=== PATIENT | male | born 1980 | race Caucasian/White ===

== ENCOUNTER 2024-06-24 08:33 | Emergency (ER) | payer BC, SELFPAY ==
[2024-06-24] VITALS (14 sets, daily range): BP systolic 141–183; BP diastolic 78–105; PULSE 59–93; RESP 18; TEMP 36.8; O2SAT 94–99; BMI 42.0
--- NOTE | 2024-06-24 09:07 | ED_ITS ---
HPI - Abdominal Pain General Chief Complaint: Abdominal Pain Stated Complaint: internal pain l quadrant abd Time Seen by Provider: 06/24/24 09:02 Source: patient Mode of arrival: Ambulatory History of Present Illness HPI narrative: 44-year-old male with history of diverticulitis, for which he has had prior admission with bloody stools, complains of 4 days duration left flank and left upper quadrant and left lower quadrant discomfort, persisting, worse lying on his left side, worse with movement, improved with holding still and upright positioning, not typical of his previous diverticulitis flare symptoms. No injury or trauma new activities. Last bowel movement this morning unremarkable, not hard, no black or red coloration, no change in caliber, not loose, and did not increase or decrease his ongoing abdominal discomfort. He denies history of previous kidney stones, aortic problems, urinary tract infection. Denies pain on urination, frequency of urination. No problems emptying bowel or bladder. No recent exposure to persons with similar symptoms. Related Data Previous Rx's Medication Instructions Recorded amoxicillin 875 mg-potassium 1 tab PO BID #20 tabs 06/24/24 clavulanate 125 mg tablet Allergies Allergy/AdvReac Type Severity Reaction Status Date / Time No Known Drug Allergies Allergy Verified 06/24/24 08:46 Review of Systems Review of Systems Narrative: see HPI Patient History Social History Smoking Status: Never smoker Smoking Status: Never smoker alcohol intake frequency: a few times a week Substance Use Type: does not use Exam Narrative Exam Narrative: GENERAL: Well-developed patient, in mild distress. HEAD: Atraumatic. Normocephalic. EYES: Pupils equal round and reactive. Extraocular motions intact. No scleral icterus. No injection or drainage. ENT: Nose without bleeding, purulent drainage. Throat without erythema, tonsillar hypertrophy or exudate. Airway patent. NECK: Trachea midline. Non tender CARDIOVASCULAR: Regular rate and rhythm without murmurs, gallops, or rubs. RESPIRATORY: Clear to auscultation. Breath sounds equal bilaterally. No wheezes, rales, or rhonchi. GASTROINTESTINAL: Abdomen soft, non-tender, nondistended. EXTREMITIES: No edema or joint tenderness. BACK: Nontender without deformity or crepitance. No flank tenderness. NEURO: AOx3. SKIN: No rash or erythema of visible areas Initial Vital Signs Initial Vital Signs: Vital Signs Pulse Rate 84 06/24/24 08:40 Pulse Oximetry 96 06/24/24 08:40 Course Orders Ordered: Discontinued Medications Sodium Chloride (Normal Saline 0.9%) 1,000 mls @ 500 mls/hr IV BOLUS ONE Stop: 06/24/24 11:44 Last Infusion: 06/24/24 12:11 Dose: Infused Documented By: Admin: 06/24/24 10:01 Dose: 500 mls/hr Documented By: NESS Ampicillin Sodium/Sulbactam (Sodium 3 gm/ Sodium Chloride) 100 mls @ 200 mls/hr IV NOW ONE Stop: 06/24/24 12:12 Last Infusion: 06/24/24 13:03 Dose: Infused Documented By: Admin: 06/24/24 12:29 Dose: 200 mls/hr Documented By: NESS Ondansetron HCl (Ondansetron 4 Mg/2 Ml Inj) 4 mg IV NOW PRN PRN Reason: Nausea And Vomiting Ondansetron HCl (Ondansetron 4 Mg Odt) 4 mg PO NOW PRN PRN Reason: Nausea And Vomiting Vital Signs Vital signs: Vital Signs - 8 hr 06/24/24 12:30 06/24/24 12:30 Pulse Rate 71 Blood Pressure 159/96 H Pulse Oximetry 98 MDM - Abdominal Pain Lab Data Attestation: I reviewed the patient's lab results. 06/24/24 08:55 06/24/24 08:55 Labs: Lab Results 06/24/24 Range/Units 08:55 WBC 6.8 (4.5-11.0) X10^3/uL RBC 5.08 (4.5-5.9) X10^6/uL Hgb 14.8 (13.5-17.5) g/dL Hct 43.3 (41-53) % MCV 85.3 (80-100) fL MCH 29.2 (26-34) PG MCHC 34.2 (30-36) % RDW 13.8 (11.6-14.8) % Plt Count 174 (150-400) X10^3/uL Neut % (Auto) 60.3 (50-75) % Lymph % (Auto) 25.7 (25-40) % Barber % (Auto) 6.3 (3-14) % Eos % (Auto) 7.2 H (2-4) % Baso % (Auto) 0.5 (0-2) % Neut # (Auto) 4100 (7909-4566) /uL Lymph # (Auto) 1800 (1978-7354) /uL Barber # (Auto) 400 (0-900) /uL Eos # (Auto) 500 H (0-450) /uL Baso # (Auto) 0 (0-100) /uL Sodium 137 (137-145) mmol/L Potassium 4.2 (3.4-5.1) mmol/L Chloride 105 (98-107) mmol/L Carbon Dioxide 24 (22-32) mmol/L BUN 10 (9-20) mg/dL Creatinine 0.90 (0.66-1.25) mg/dL Estimated GFR > 60 (>60) mL/min BUN/Creatinine Ratio 11.1 (6-22) Glucose 96 (70-100) mg/dL Calcium 9.1 (8.4-10.2) mg/dL Total Bilirubin 0.8 (0.2-1.3) mg/dL AST 39 (17-59) IU/L ALT 70 H (<50) IU/L Alkaline Phosphatase 91 (38-126) U/L Total Protein 7.5 (6.3-8.2) g/dL Albumin 4.4 (3.5-5.0) g/dL Globulin 3.1 (1.7-4.1) g/dL Albumin/Globulin Ratio 1.4 (1.0-2.8) Lipase 98 (23-300) U/L Point of care testing: Urine Dip Bedside Urine Glucose Negative Bedside Urine Bilirubin - Negative Bedside Urine Ketone - Negative Urine Specific Browning 1.015 Bedside Urine Occult Blood - Negative Bedside Urine pH 6.0 Bedside Urine Protein - Negative Bedside Urine Urobilinogen - Negative Bedside Urine Nitrite - Negative Bedside Urine Leukocytes - Negative Esterase MDM Narrative Medical decision making narrative: 44-year-old male with atraumatic left flank left-sided abdominal pain upper and lower, for the last 4 days, history of diverticulitis but he feels this is different, no known history of kidney stones or aortic problems. No tenderness on exam. Afebrile, sirs screen negative. DDx consider left ureteral stone, UTI/pyelo, diverticulitis, colitis, perforated viscus, bowel obstruction, musculoskeletal, renovascular infarct, splenic injury, other. Pain medication offered, he declined for now. Labs pending, anticipate CT abdomen and pelvis imaging. CT abdomen and pelvis shows diverticulosis with scattered areas of possible diverticulitis. No mention of any abscess or perforation changes. IV Unasyn, we will discharge on oral Augmentin course. Improved, discharged home, follow up as outpatient, return precautions discussed Critical Care Time Critical Care Time Critical Care Time: Yes Total Critical Care Time: 31 Attestation: The high probability of a clinically significant, sudden or life threatening deterioration of the [GI, , abdomiopelvic] system(s) required my full and direct attention, intervention and personal management. The aggregate critical care time was [31] minutes. This time is in addition to time spent performing reported procedures but includes the following: [x] Data Review and interpretation [x] Patient assessment and monitoring of vital signs [x] Documentation [x] Medication orders and management Discharge Plan Departure Patient Disposition: Home Clinical Impression: Diverticulitis Instructions: DI for Diverticulitis Activity Restrictions/Additional Instructions: Left-sided abdominal pain and flank pain, history of diverticulitis, no tenderness on exam. No known history of kidney stones. No fever on triage. CT abdomen and pelvis was performed to help clarify diagnosis, there is mostly diverticulosis noninfected pouches but there are some scattered areas of diverticulitis infected pouches, no obstruction or abscess or perforation changes. You are not having lower GI bleeding symptoms at this time or recent. IV antibiotic Unasyn given, trial of oral antibiotic Augmentin for 10 day course. Recheck symptoms with your regular doctor on Thursday. You declined pain medications while in the department here, consider using Tylenol and or Motrin for pain control as an outpatient. Return to this/nearest emergency department for any change worsening symptoms or any concerns prior Prescriptions: New amoxicillin-pot clavulanate 875-125 mg tablet 1 tab PO BID Qty: 20 0RF Stand Alone Forms: Patient Portal/API
[2024-06-24 09:23] LABS: Add Manual Diff / Slide Review NO; Alanine Aminotransferase 70 IU/L (<50); Albumin 4.4 g/dL (3.5-5.0); Albumin Globulin Ratio 1.4 (1.0-2.8); Alkaline Phosphatase 91 U/L (38-126); Aspartate Aminotransferase 39 IU/L (17-59); BUN Creatinine Ratio 11.1 (6-22); Basophils Absolute Auto 0 /uL (0-100); Basophils Percent Auto 0.5 % (0-2); Bilirubin Total 0.8 mg/dL (0.2-1.3); Blood Urea Nitrogen 10 mg/dL (9-20); Calcium 9.1 mg/dL (8.4-10.2); Carbon Dioxide 24 mmol/L (22-32); Chloride 105 mmol/L (98-107); Eosinophils Absolute Auto 500 /uL (0-450); Eosinophils Percent Auto 7.2 % (2-4); Estimated Glomerular Filt Rate > 60 mL/min (>60); Globulin 3.1 g/dL (1.7-4.1); Glucose 96 mg/dL (70-100); HEMOLYSIS < 15 (0-50); Hematocrit 43.3 % (41-53); Hemoglobin 14.8 g/dL (13.5-17.5); Lipase 98 U/L (23-300); Lymphocytes Absolute Auto 1800 /uL (1100-4500); Lymphocytes Percent Auto 25.7 % (25-40); Mean Corpuscular HGB Conc 34.2 % (30-36); Mean Corpuscular Hemoglobin 29.2 PG (26-34); Mean Corpuscular Volume 85.3 fL (80-100); Monocytes Absolute Auto 400 /uL (0-900); Monocytes Percent Auto 6.3 % (3-14); Neutrophils Absolute Auto 4100 /uL (1500-7000); Neutrophils Percent Auto 60.3 % (50-75); Platelet Count 174 X10^3/uL (150-400); Potassium 4.2 mmol/L (3.4-5.1); Red Blood Cell Count 5.08 X10^6/uL (4.5-5.9); Red Cell Distribution Width 13.8 % (11.6-14.8); Sodium 137 mmol/L (137-145); Total Protein 7.5 g/dL (6.3-8.2); White Blood Cell Count 6.8 X10^3/uL (4.5-11.0)
--- NOTE | 2024-06-24 09:45 | DI.CT.S_ITS ---
PROCEDURE: CT ABDOMEN PELVIS W CON INDICATIONS: L flank LMQ LLQ pain, hx diverticulitis, no tenderness TECHNIQUE: After the administration of intravenous contrast, axial sections acquired from the lung bases to the pubic symphysis. Coronal and sagittal reformats were performed. For radiation dose reduction, the following was used: automated exposure control, adjustment of mA and/or kV according to patient size. COMPARISON: None. FINDINGS: Image quality: Diagnostic. Lower Chest: No significant findings. ABDOMEN: Liver: Moderate diffuse hepatic steatosis. No focal liver mass. Gallbladder: Multiple tiny dependent gallstones in the gallbladder. No gallbladder wall thickening. Biliary ducts: No biliary dilation. Pancreas: No ductal dilation. Spleen: Size is within normal limits. Adrenal Glands: No adrenal nodules. Kidneys and Ureters: No hydronephrosis. No solid mass. No complex renal cystic lesion which requires follow up. Stomach and Bowel: Normal colonic caliber, without significant wall thickening. Scattered left colonic diverticulosis. Question very mild changes of acute diverticulitis. Peritoneum: No abnormal intraperitoneal fluid. No free air. Ventral Wall: No significant ventral hernia. Abdominal Nodes: No retroperitoneal or mesenteric adenopathy by size criteria. Vessels: Aorta and inferior vena cava are normal in size. PELVIS: Pelvic Organs: Unremarkable. Bladder: No bladder wall thickening, accounting for underdistention. Pelvic Nodes: No enlarged lymph nodes. Miscellaneous: Small, fat containing left inguinal hernia. Bones: No aggressive osseous abnormality. IMPRESSION: 1. Moderate diffuse hepatic steatosis. 2. Cholelithiasis. 3. Scattered left-sided diverticulosis with question of very mild changes of acute diverticulitis. Dictated by: Keo Christine M.D. on 06/24/2024 at 11:50 Approved by: Keo Christine M.D. on 06/24/2024 at 11:53
[2024-06-24] MEDS: SODIUM CHLORIDE 0.9% 1,000 ML 500 ML IV (10:01)
[2024-06-24] MEDS: AMPICILLIN/SULBACTAM 3 GM 3 GM in SODIUM CHLORIDE 0.9% 100 ML IV (12:29)
== END 2024-06-24 13:05 | disposition home or self-care (01) ==
PROVIDERS: Emergency Provider Emergency Medicine
DX: K57.92 Diverticulitis of intestine, part unspecified, without perforation or abscess without bleeding (principal)
CPT/HCPCS: 36415; 74177; 80053; 81003; 83690; 85025; 96361; 96365; 99284; J0295